=== PATIENT | female | born 1970 | race Asian ===

== ENCOUNTER 2021-11-13 11:29 | Day surgery (SDC) | payer MEDICAID, OTHER ==
[~2021-11-13] VITALS: Ht 144.8 cm; Wt 65.9 kg
[~2021-11-13 11:29] MED LIST: ALBU18HF2 INH; CALCIUM PO; CYCL-1 PO; FLUO20CA39 PO; FLUT16SP2 BOTHNARES; HYDR-3965 PO; LORA10TA7 PO; MAALOX PO; NAPR-1154 PO; OMEP20CA15 PO; OXYB5TAB16 PO; PENI500T2 PO; PREVCR VG
[2021-11-13 11:40] VITALS: BP 155/110
[2021-11-13] MEDS ORDERED: fentaNYL/PF 50MCG/1 ML 2ML syringe ONE (11:45)
[2021-11-13] MEDS ORDERED: MIDAZolam 1 MG/ML 5ML VIAL ONE (11:46)
[2021-11-13 12:18] VITALS: BP 140/49
[2021-11-13 12:28] VITALS: BP 146/78
[2021-11-13 12:38] VITALS: BP 139/93
[2021-11-13 12:48] VITALS: BP 108/46
== END 2021-11-13 13:00 | disposition home or self-care (01) ==
LOC: GI LAB 11:29
PROVIDERS: ATTEND Internal Medicine Gastroenterology
DX: Z12.11 Encounter for screening for malignant neoplasm of colon (principal); K64.8 Other hemorrhoids; Z79.82 Long term (current) use of aspirin; Z86.010 Personal history of colon polyps
CPT/HCPCS: 45378; 99152; J2250; J3010; J7040; Z7512; A4620

== ENCOUNTER 2025-04-11 13:46 | Emergency (ER) | payer BC, MEDICAID ==
[~2025-04-11] VITALS: Ht 142.2 cm; Wt 60.0 kg
[~2025-04-11 13:46] MED LIST changes: -FLUO20CA39 PO; -HYDR-3965 PO; -MAALOX PO; -NAPR-1154 PO; -OXYB5TAB16 PO; +OXYB5TAB21 PO; -PENI500T2 PO
[2025-04-11 14:15] VITALS: BP 126/65; PULSE 73; O2SAT 98
[2025-04-11] MEDS: ketorolac trometh 15mg/ml vial 15 MG/ML ML IM ONE (15:56)
[2025-04-11] MEDS: orphenadrine citrate 60mg/2ml inj. IM ONE (15:58)
[2025-04-11 17:12] VITALS: RESP 16
[2025-04-11] MEDS ORDERED: ORPH100T4 PO (18:00)
[2025-04-11] MEDS ORDERED: NAPR-56 PO (18:00)
--- NOTE | 2025-04-11 18:00 | Physician Documentation ---
History of Present Illness ~ Chief Complaint: Back Pain Stated Complaint: BACK PAIN Time Seen by MD: 15:09 OK to notify your PCP?: Yes [facility] Source: patient Mode of Arrival: POV Exam Limitations: no limitations HPI 54-year-old female presents with history of chronic back pain which is now radiating down both legs. She states that this has been going on for the past year of months but just seems to be progressively getting worse. She has had x- rays and an MRI and seen an orthopedic it infrastructure specialist who recommended for her to get spinal injections. She was not approved with her insurance for the spinal injections in his still experiencing lots of pain. She has been taking Tylenol extra strength and ibuprofen and using heating pad with no relief at home. Medication Reconciliation Allergies: Coded Allergies: hydromorphone (Unverified Allergy, Unknown, ITCHING., 10/06/14) Scheduled Albuterol Sulfate (Ventolin Hfa), 2 PUFFS INH Q4HPRN, (Reported) Estrogens,Conjugated Vaginal Cream* (Premarin Vaginal Cream*), 1 APPLIC VG DAILY, (Reported) Fluticasone Propionate (Flonase), 2 SPRAYS BOTHNARES DAILY, (Reported) Loratadine (Loratadine), 1 TABLET PO DAILY, (Reported) Naproxen (Naproxen), 1 TAB PO Q12H Omeprazole (Omeprazole), 1 CAP PO DAILY, (Reported) Oxybutynin Chloride (Oxybutynin Chloride), 1 TABLET PO DAILY, (Reported) [Calcium], 500 MG PO DAILY, (Reported) Scheduled PRN Cyclobenzaprine* (Cyclobenzaprine*), 1 TABLET PO BID PRN for muscle spasms, (Reported) Orphenadrine Citrate (Norflex), 1 TAB PO Q12H PRN PRN for pain Past Medical History Past Medical History: No Pertinent History Smoking Status: Never smoker Alcohol Use: None Lives with: Spouse Review of Systems All Other Systems at this time: Reviewed and Negative Physical Exam Physical Exam Vital Signs: RN Vital Signs have been reviewed: Yes, Heart Rate: 73, Respiratory Rate: 16, BP: 126/65, Pulse Oximetry: 98, Weight: 60.000 Oxygen Flow Rate: 0 Pulse Oximetry Reflects: adequate oxygenation Physical Exam General: Alert, no distress. HEENT: No injection, moist mucous membranes. Neck: Full range of motion. Respiratory: No respiratory distress, equal chest rise and fall. Chest: No accessory muscle use. Cardiovascular: Regular rate and rhythm. Gastrointestinal: Nondistended. Extremities: Normal range of motion, no deformity. Normal sensation in legs bilaterally, good CSM, good pulses. Back: No CVA tenderness, no midline tenderness of spine, tenderness to palpation on left and right lower lumbar muscles. Neurologic: Oriented x4. Psychiatric: Normal mood and affect. Skin: Normal color, warm and dry. Progress Results/Orders Reviewed/noted all lab results: Yes Results/Orders Completed Orders - LADY LOVE [facility] Ketorolac Trometh 15mg/Ml Vial (Toradol (04/11/25 15:50) Orphenadrine Citrate Inj. (Norflex Inj.) (04/11/25 15:50) Vital Signs 04/11/25 04/11/25 04/11/25 14:15 15:56 17:12 Pulse 73 Resp 16 18 16 B/P (MAP) 126/65 Pulse Ox 98 O2 Flow Rate 0 Medical Decision Making Additional info obtained from: old records, family Findings 54-year-old female that presents with chronic back pain for the past year which is getting progressively worse. She has been taking her [id number]-[id number] medications which normally provide some relief but no longer is. She denies any saddle anesthesia or loss of bowel or bladder. She states that this feels like her regular back pain is just getting worse over the past couple of weeks. She has already had x-rays and an MRI completed as well as seen in ortho it infrastructure specialist and she reports was diagnosed with lumbar radiculopathy. She was referred to get some spinal injections done although her insurance denied the claim. She has an appointment coming up to meet with the ortho it infrastructure specialist again but is requesting some pain relief in the meantime. I gave her orphenadrine and Toradol while in the department for which she did experience significant pain relief and was requesting to be discharged to go home. I told her to stop taking the ibuprofen and to switch to the naproxen which I prescribed as well as to take the Norflex as needed for muscle spasms. Told her to continue with her appointment with ortho it infrastructure specialist as well as her primary care provider within the next week and to return back here for any new or worsening symptoms. Differential Dx:Considerations: Include: Aortic dissection, Pyelonephritis, Urolithiasis Differential Diagnosis Lumbar fracture, cauda equina. Departure Disposition: HOME / SELF CARE / HOMELESS Impression: Primary Impression: Sciatica Additional Impression: Chronic back pain Condition: Stable Discharge Instructions: Chronic Back Pain Additional Instructions: Follow up with the primary care provider in the next 3 days and return back here for any new or worsening symptoms. Referrals: NO PRIMARY CARE PROVIDER (PCP) Prescriptions Orphenadrine Citrate (Norflex) 100 Mg Tablet.sa 1 TAB PO Q12H PRN PRN for pain for 30 Days, #60 TAB 0 Refills Prov: LADY LOVE 04/11/25 Naproxen (Naproxen) 500 Mg Tablet 1 TAB PO Q12H, #20 TAB Prov: LADY LOVE 04/11/25 Education Educated: Patient, Family Educated regarding: diagnosis, treatment, prognosis, need for follow up Additional Comment Medical Screen Exam This patient recieved a medical screening examination. After reviewing the individual's medical complaints with presenting symptoms and performing an appropriate physical examination, it was determined that no immediate life- threatening emergency medical condition is present. This individual is also not a women having contractions. Signature Scribe Signature: . Attestation: Scribed for Lady Love by Lady Escobar NP . 04/12/25 00:35 Parts of this note were created using [employer] voice recognition software program. While efforts were made to correct any mistakes made by this voice recognition software program, nonsensical phrases may remain in this note. In addition, there may be errors and syntax, grammar, content and spelling. LADY LOVE Apr 11, 2025 18:00
== END 2025-04-11 18:08 | disposition home or self-care (01) ==
LOC: ER 13:47
DX: M54.30 Sciatica, unspecified side (principal); Z88.5 Allergy status to narcotic agent
CPT/HCPCS: 96372; 99284; J1885; J2360